=== PATIENT | male | born 1965 | race Caucasian/White ===

== ENCOUNTER 2024-05-18 06:20 | Inpatient (IN) | payer OTHER, SELFPAY ==
[2024-05-17 22:32] VITALS: BP 134/79
[2024-05-17 22:55] LABS: % Basophils 0.4 % (0-2); % Eosinophils 0.6 % (0-6); % Immature Granulocytes 0.6 % (0-0.5); % Lymphocytes 9.5 % (20.5-51.1); % Monocytes 8.1 % (1.7-9.3); % Neutrophils 80.8 % (42.2-75.2); Absolute Basophils 0.1 10^3/uL (0-0.2); Absolute Eosinophils 0.1 10^3/uL (0-0.7); Absolute Immature Granulocytes 0.1 10^3/uL (0-0.05); Absolute Lymphocytes 1.5 10^3/uL (1.2-3.4); Absolute Monocytes 1.3 10^3/uL (0.1-0.6); Absolute Neutrophils 12.7 10^3/uL (1.4-6.5); Hematocrit 41.6 % (39.0-52.0); Hemoglobin 14.2 g/dL (13.0-18.0); Mean Corp Hgb Conc. 34.1 g/dL (33.0-37.0); Mean Corpuscular Hgb 29.8 pg (27.0-31.0); Mean Corpuscular Volume 87.2 fL (80.0-94.0); Nucleated Red Blood Cells % 0 % (-); Platelet Count 263 10^3/uL (130-400); Red Blood Cell Count 4.77 10^6/uL (4.70-6.10); Red Cell Dist. Width 12.9 % (11.5-14.5); White Blood Cell Count 15.8 10^3/uL (4.8-10.8)
[2024-05-17 23:08] LABS: Lactic Acid 0.9 mmol/L (0.7-2.0)
[2024-05-17 23:10] LABS: ALT (SGPT) 35 U/L (0-50); AST (SGOT) 23 U/L (17-59); Albumin 4.5 g/dl (3.5-5.0); Alkaline Phosphatase 64 U/L (38-126); Blood Urea Nitrogen 22 mg/dl (9-20); Calcium 9.5 mg/dl (8.4-10.2); Carbon Dioxide 31 mmol/L (22-30); Chloride 95 mmol/L (98-107); Glucose 93 mg/dl (70-99); Potassium 4.5 mmol/L (3.5-5.1); Sodium 132 mmol/L (135-145); Total Bilirubin 2.2 mg/dl (0.2-1.3); Total Protein 6.6 g/dl (6.3-8.2); eGFR > 60.00
[2024-05-17 23:21] LABS: Lipase 2545 U/L (23-300)
[2024-05-18 02:37] VITALS: BP 136/84
[2024-05-18 02:43] VITALS: BMI 29.7
--- NOTE | 2024-05-18 03:27 | ED.GENMED ---
History of Present Illness
General
Chief Complaint: Abdominal Symptoms
Source: patient
Time Seen by Provider: 05/18/24 03:17
History of Present Illness
History of Present Illness:
58-year-old male presents to the emergency room complaining of nausea, vomiting and pain in the epigastric region. Patient has been experiencing pain in his abdomen for the past 24 to 36 hours. He has also been experiencing pain in his left leg
and low back which was initially treated as sciatica with prednisone and ibuprofen. However he developed a rash the other day which was diagnosed as herpes zoster. He began taking Valtrex yesterday. Patient endorses eating more than normal as
well as drinking more alcohol than normal over the holidays. He does not typically drink on a regular basis.
Past History
Past History
ED Past Medical History: Hypercholesterolemia
ED Past Surgical History: None
Phy Exam
Physical Exam
Physical Exam:
General: Awake, Alert, Oriented X3. No acute distress.
Vitals: unremarkable
Head: Atraumatic
Eyes: Pupils equal, EOMI
Throat: Airway intact, no exudates
Neck: Trachea midline
Lungs: Clear and equal b/l
Heart: Regular rate, no murmurs
Abd: Soft, positive epigastric tenderness to palpation, no pulsatile mass
Neuro: Nonfocal
Skin: Warm, dry, no rash. Vesicular rash noted left lateral thigh hand lower leg
Extremities: pulses equal b/l, no edema
Course
Orders/Labs/Results
Orders:
Orders
05/17/24 22:45
CBC/With Diff [Complete Blood Count/With Diff] Urgent
Comprehensive Metabolic Panel Urgent
Lactic Acid Urgent
Lipase Urgent
05/18/24 03:26
Ondansetron Injectable [Zofran] 4 mg IV NOW STA
05/18/24 03:27
CT Abd/Pel (IV only)-DH only Urgent
Comment:
Reason For Exam: epigastric pain, elevated lipase
Lactated Ringers [Lr] 1,000 ml IV BOLUS
05/18/24 05:53
Admit/Transfer Patient As Directed
Co-Sign Provider:
Level of Care: Inpatient admission
Assign to:: Medical/Surgical
Physician / Group: Nathanael
Diagnosis: Pancreatitis
Reason for Hospitalization: Pancreatitis
Expected length of stay greater than two midnights?: Yes
ELOS- Estimated Length of Stay in days: 3
I certify the patient meets the requirements for IP care: Yes
Code Status As Directed
Resuscitation Status: Full Code
PRN Pain Medication Management As Directed
May give lesser potent ordered pain med per pt: Yes
preference::
Protocol:: Medication orders for pain may be administered in a
manner that supports deferring to patient preference
when the pt is:
- Requesting an ordered lesser potent pain medication.
Least to most potent pain medications are defined
as: acetaminophen < NSAID < tramadol < opioids
(morphine, oxycodone, hydromorphone).
- Requesting a lesser dose of the same medication IF
ORDERED.
- Requesting a less intrusive route of administration
if both routes are prescribed by the provider (PO <
IV).
Abnormal Lab Results
05/17/24
22:45
WBC 15.8 H 10^3/uL
(4.8-10.8)
Abs Immat Gran (auto) 0.1 H 10^3/uL
(0-0.05)
Absolute Neuts (auto) 12.7 H 10^3/uL
(1.4-6.5)
Absolute Monos (auto) 1.3 H 10^3/uL
(0.1-0.6)
Immature Gran % 0.6 H %
(0-0.5)
Neutrophils % 80.8 H %
(42.2-75.2)
Lymphocytes % 9.5 L %
(20.5-51.1)
Sodium 132 L mmol/L
(135-145)
Chloride 95 L mmol/L
(98-107)
Carbon Dioxide 31 H mmol/L
(22-30)
BUN 22 H mg/dl
(9-20)
Total Bilirubin 2.2 H mg/dl
(0.2-1.3)
Lipase 2545 H* U/L
(23-300)
05/17/24 22:45
05/17/24 22:45
Vital Signs
Initial and Last Documented VS:
Initial Vital Signs
Temp Pulse Resp BP Pulse Ox
98.4 F 88 20 134/79 96
05/17/24 22:32 05/17/24 22:32 05/17/24 22:32 05/17/24 22:32 05/17/24 22:32
Last Documented Vital Signs
Temp Pulse Resp BP Pulse Ox
98.4 F 74 18 143/90 95
05/17/24 22:32 05/18/24 04:46 05/18/24 04:46 05/18/24 04:46 05/18/24 04:46
MDM/Problems Addressed
Differential Diagnosis Includes:
Cholecystitis, pancreatitis, gastritis
MDM/Problems Addressed:
Patient presents with epigastric pain. Labs show elevated white count of 15.8. Lipase is significantly elevated. Abdominal CT obtained which shows inflammation of the pancreas. Gallbladder itself appears normal. Patient will require
hospitalization. He denies significant alcohol ingestion. Source of pancreatitis unclear. Valtrex is the only new medication which she just started. Also wonder if herpes zoster in of itself can cause pancreatitis. All this will need to be
sorted out by the allied health professional.
*Radiology
Radiology exam reviewed: preliminary read by ED provider (Swelling and edema noted about the pancreas.) and radiology read reviewed (Vision report reviewed.)
*Pulse Oximetry
Patient hypoxic: no
*Critical Care Note
Total Time (30-74mins, 75-104mins- exclusive of procedures): Not Applicable
ED Attending Note
-
Portions of this chart may have been created with voice recognition software.� Occasional wrong word or��sound alike� substitutions may have occurred due to the inherent limitations of voice recognition software.
Discharge Plan
Departure
Patient Disposition: Admit
Date of Disposition: 05/18/24
Time of Disposition: 05:36
Admit to: Med/Surg
Presentation/result/management discussed w/ accepting MD/DO: Hospitalist
Condition: Fair
Discharge Problem:
Acute pancreatitis
Interventions
Interventions:
*General Assessment Last Done: 05/17/24 22:32
*ED COVID-19 Vaccine History Last Done: 05/18/24 02:39
SK-Qugztt-Egupggtcvq Assessment Last Done: 05/18/24 02:44
[2024-05-18] MEDS: ZOFRAN 4 MG IV (03:35)
[2024-05-18] MEDS: LR 1000 IV ×5 (03:35→23:04)
[2024-05-18 04:46] VITALS: BP 143/90
--- NOTE | 2024-05-18 05:56 | HPS.HSE ---
Family Physician
-
Family Physician: Albert Cruz DO
Chief Complaint
-
Abd Pain
History of Present Illness
Patient is a 58y M with PMH significant for dyslipidemia who presents to ED complaining of abdominal pain. Patient states that he started with epigastric abdominal pain yesterday evening (05/16). Pain started after Dario dinner. Patient
reports persistent / worsening pain since that time. Mild nausea without emesis. With pain increasing, he presented to the ED for further evaluation. He denies any prior history of similar symptoms.
Patient states that he developed burning pain in the LLE / L lower back about 2 weeks ago.
He was initially treated for sciatic pain with a Medrol dose pack - followed by prednisone 50mg daily x 5 days (last dose yesterday).
During this time he was also taking Advil [id number] for attempted pain control.
On 05/17, patient / family noted red lesions around the L knee concerning for shingles. They contacted their PCP and received Rx for valacyclovir which he started today.
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
Patient drinks perhaps two nights per week. A glass or two of wine per sitting.
He has had more alcohol than usual over the past few days due to the holidays.
Medical History
Past Medical History
Past Medical History: Reports Other
Additional Past Medical History:
Dyslipidemia
Shingles
Past Surgical History: Reports Other
Additional Past Surgical History:
Left ACL Repair
Appendectomy
Social History
Tobacco: Former Smoker (Quit smoking 25 years ago. )
Alcohol: Occasional
Drug: None
Family History
Family History: Not pertinent
Allergies / Home Medications
Allergies reflects when Allergies were last updated in [facility].
Home Medications with original date entered in [facility]
Allergy/Medication List:
Allergies
Allergy/AdvReac Type Severity Reaction Status Date / Time
No Known Allergies Allergy Verified 05/18/24 05:41
Home Medications
rosuvastatin 5 mg tablet 5 mg PO DAILY 05/18/24
valacyclovir 1 gram tablet 1,000 mg PO Q8H 05/18/24
Review of Systems
-
History Source: Patient
A 12 point ROS was completed and negative except as noted: Yes
Constitutional: Denies Fever or Chills
Respiratory: Denies Cough or Trouble Breathing
Cardiac: Denies Chest Pain or Palpitations
Abdomen/GI: Reports Abdominal Pain and Nausea; Denies Vomiting, Diarrhea or Constipated
: Denies Dysuria or Frequency
Neurological: Reports Other (Radicular pain.); Denies Dizzy or Headache
Psych: Denies Depression or Anxiety
Physical Exam
Vital Signs
Vital Signs
Temp Pulse Resp BP Pulse Ox
98.4 F 74 18 143/90 95
05/17/24 22:32 05/18/24 04:46 05/18/24 04:46 05/18/24 04:46 05/18/24 04:46
Physical Exam
General: Other (58y M in mild distress due to pain.)
HEENT: Moist mucous membranes and PERRLA
Respiratory: Clear; No Wheezes, Rales or Rhonchi
Cardiac: S1/S2 and Regular Rhythm; No Murmur
GI: Soft, Non Distended, Normal Bowel Sounds and Other (Pos epigastric and RUQ tenderness without rebound / guarding. Pos BS.)
Musculoskeletal: No Clubbing, No Cyanosis and No Edema
Skin: Other (Rash / erythematous lesions around the L knee.)
Neuro: AO x 3
Laboratory Results
-
05/17/24 22:45
05/17/24 22:45
Laboratory Results
Lactic Acid 0.9 mmol/L (0.7-2.0) 05/17/24 22:45
Total Bilirubin 2.2 mg/dl (0.2-1.3) H 05/17/24 22:45
AST 23 U/L (17-59) 05/17/24 22:45
ALT 35 U/L (0-50) 05/17/24 22:45
Alkaline Phosphatase 64 U/L (38-126) 05/17/24 22:45
Lipase 2545 U/L (23-300) H* 05/17/24 22:45
Impression/Plan
-
A/P: Patient is a 58y M with PMH significant for dyslipidemia who presents to ED complaining of abdominal pain x 24 hours.
Acute Pancreatitis
- Admit for further evaluation and treatment.
- NPO, IVF support, pain control, etc.
- GI evaluation for additional recommendations.
- No evidence of gallstones / GB disease by CT scan.
- ? advanced imaging for further evaluation.
- ? symptoms triggered by GERD / peptic ulcer disease given recent NSAID + steroid use.
- Follow clinically for improvement.
LLE Radiculopathy
- Possible herpes zoster infection with burning pain and rash.
- Continue valacyclovir to complete 7 day course.
- Add gabapentin for neuropathic pain.
- Avoid NSAIDs for now.
- Follow for improvement.
Dyslipidemia
- Stable. Hold statin acutely.
DVT Prophylaxis: SCDs
Code Status: Full
--- NOTE | 2024-05-18 07:40 | W.PN.HOSP.TC ---
Addendum entered and electronically signed by Supa Back MD 05/18/24 07:46:
4. Borderline low sodium - unclear cause, could be hypovolemic hyponatremia
follow daily after administration of IV fluids
5. BUN/Creat > 20 - from decreased po
Give IV fluids
Re check daily
6. Elevated WBC - likely from combo of zoster and pancreatitis
Follow daily.
Original Note:
Today's Communication/Plan
-
Keep NPO, ice chips ok.
Assessment / Plan
Assessment / Plan
58y M with PMH significant for dyslipidemia who presents to ED complaining of abdominal pain x 24 hours.
1. Acute Pancreatitis - No evidence of gallstones / GB disease by CT scan.
- Continue NPO, IVF support, pain control,
- GI evaluation for additional recommendations.
- ? advanced imaging for further evaluation.
- ? symptoms triggered by GERD / peptic ulcer disease given recent NSAID + steroid use.
- Follow clinically for improvement.
2. LLE Radiculopathy - Possible herpes zoster infection with burning pain and rash.
- Continue valacyclovir to complete 7 day course.
- Added gabapentin for neuropathic pain.
- Avoid NSAIDs for now.
- Follow for improvement.
3. Dyslipidemia
- Stable. continue to Hold statin acutely.
DVT Prophylaxis: SCDs
Code Status: Full
Anticipated Discharge: 24 - 48 hours
Subjective/Interval History
-
Date of Service: May 18, 2024
Feels better. Abdominal pain is less. No new issues.
Objective Data
-
Labs:
Laboratory Results
05/17/24
22:45
WBC 15.8 H
Hgb 14.2
Hct 41.6
Plt Count 263
Sodium 132 L
Potassium 4.5
Chloride 95 L
Carbon Dioxide 31 H
BUN 22 H
Creatinine 0.8
Glucose 93
Calcium 9.5
Total Bilirubin 2.2 H
AST 23
ALT 35
Alkaline Phosphatase 64
Vital Signs:
Vital Signs
Temp Pulse Resp BP Pulse Ox
98.4 F 74 18 143/90 95
05/17/24 22:32 05/18/24 04:46 05/18/24 04:46 05/18/24 04:46 05/18/24 04:46
Review of Systems
-
History Source: Patient
All other systems: Reviewed and negative
Physical Exam
-
General: Well Developed, Well Nourished, No Apparent Distress and Comfortable
HEENT: Normocephalic, Atraumatic, Nose Appears Normal and Ears Appear Normal
Respiratory: Clear to Auscultation
Cardiac: Regular Rhythm and S1/S2
GI: Soft, Nontender and Nondistended
Musculoskeletal: No Clubbing, No Cyanosis and No Edema
Skin: Warm and Dry; Negative Rash or Ulcers
Neuro: Awake, Alert, Oriented and AO x 3
Psych: Calm
Data Reviewed
-
Labs: Labs Reviewed by me
[2024-05-18 08:54] VITALS: BP 131/86
--- NOTE | 2024-05-18 10:17 | CON.GI ---
Addendum entered and electronically signed by Reese Hollingsworth MD 05/18/24 18:04:
I saw and examined the patient, and discussed management with the resident. I reviewed the resident's note and agree with the documented findings and plan of care.
Comment:
The patient is a 58-year-old male who p/w 1 day history of epigastric/back pain associate with nausea vomiting. Serologic workup and imaging studies showed findings consistent with acute pancreatitis. RUQ US was negative for gallstones. The
etiology is somewhat unclear, as this could be alcohol induced (drink few glasses of wine and 3-4 shots of liquor), or medication induced (prednisone). Patient is already feeling better. CT of abdomen did not show any fluid collections. Recommend
early enteral feeding and if patient tolerates diet can DC home. Follow-up with GI. Will s/o.
Original Note:
Consultation
-
Date/Time Consultation Requested: 05/18/2024 09: 40
Date/Time Consultation Performed: 05/18/2024
Requesting Provider: Gareth Huffman
Performing Provider: Reese Hollingsworth MD
Reason for Consultation: Pancreatitis
Medical History
Chief Complaint / HPI
Chief Complaint: Epigastric pain
History of Present Illness:
58-year-old male with PMH of hyperlipidemia who presented to the ED on 05/18 with nausea, vomiting, and epigastric pain that started 24 to 36 hours [employer]. Patient reported that about 2 weeks ago, he started having left lower extremity with low
back pain which was initially thought to be sciatica and was treated with prednisone. Patient also reported that he overlapped taking prednisone and ibuprofen 3 days before discontinuing the prednisone and continue taking ibuprofen for an extra 2
days. He reported taking 50 mg prednisone for 5 days and overlapped 500 mg of ibuprofen every 5 hours which he took last on morning. He also reported drinking some wine and liquor (Vaz) while taking ibuprofen. He however
developed a rash which was recently found to be herpes zoster and was started on Valtrex a day before presentation. He denies any history of trauma, autoimmune disease, or gallstones.
Past Medical History
Past Medical History: Hypercholesterolemia and Other (Shingles)
Past Surgical History: Appendectomy and Other (Left ACL repair)
Social History
Tobacco: Former Smoker (Quit 25 years ago)
Alcohol: Occasional
Drug: None
Family History
Family History: Reviewed & Not Pertinent
Allergies / Home Medications
Allergy/AdvReac Type Severity Reaction Status Date / Time
No Known Allergies Allergy Verified 05/18/24 05:41
�Medication �Instructions �Recorded
rosuvastatin 5 mg tablet 5 mg PO DAILY High Cholesterol 05/18/24
valacyclovir 1 gram tablet 1,000 mg PO Q8H Infection 05/18/24
Review of Systems
-
History Source: Family
All other systems: A 12 pt ROS was Negative except as stated above in HPI
Vital Signs
Temp Pulse Resp BP Pulse Ox
98.7 F 76 16 131/86 97
05/18/24 08:54 05/18/24 08:54 05/18/24 08:54 05/18/24 08:54 05/18/24 08:54
Physical Exam
Exam
General: No Apparent Distress and Comfortable
Respiratory: Clear
Cardiac: S1/S2
GI: Soft, Non Distended and Tender (Mild epigastric tenderness (improved from admission))
Skin: Warm
Neuro: AO x 3
Psych: Calm
Results
WBC 15.8 10^3/uL (4.8-10.8) H 05/17/24 22:45
Hgb 14.2 g/dL (13.0-18.0) 05/17/24 22:45
Hct 41.6 % (39.0-52.0) 05/17/24 22:45
MCV 87.2 fL (80.0-94.0) 05/17/24 22:45
Plt Count 263 10^3/uL (130-400) 05/17/24 22:45
Absolute Neuts (auto) 12.7 10^3/uL (1.4-6.5) H 05/17/24 22:45
Sodium 132 mmol/L (135-145) L 05/17/24 22:45
Potassium 4.5 mmol/L (3.5-5.1) 05/17/24 22:45
Chloride 95 mmol/L (98-107) L 05/17/24 22:45
Carbon Dioxide 31 mmol/L (22-30) H 05/17/24 22:45
BUN 22 mg/dl (9-20) H 05/17/24 22:45
Creatinine 0.8 mg/dL (0.7-1.3) 05/17/24 22:45
Calcium 9.5 mg/dl (8.4-10.2) 05/17/24 22:45
Total Bilirubin 2.2 mg/dl (0.2-1.3) H 05/17/24 22:45
AST 23 U/L (17-59) 05/17/24 22:45
ALT 35 U/L (0-50) 05/17/24 22:45
Alkaline Phosphatase 64 U/L (38-126) 05/17/24 22:45
Lipase 2545 U/L (23-300) H* 05/17/24 22:45
Assessment / Plan
-
Impression: 58-year-old male with PMH of dyslipidemia who presents with worsening epigastric pain, nausea, and vomiting.
Assessment/plan:
#Acute pancreatitis
-Multifactorial etiology�combination of steroid, NSAIDs.
-Lipase 2545 with normal triglycerides.
-CT abdomen pelvis negative for gallstones.
-RUQ ultrasound limited but shows no abnormalities.
-Keep n.p.o.
-Continue IV fluids.
-PPI
-Continue Valtrex.
-Pain control with Dilaudid as needed, avoid all NSAIDs.
-
-
Thank you for consultation and allowing me to participate in the patient's care. Please call the trailer sections assembler GI physician during the after hours with any questions or concerns.
[2024-05-18] MEDS: PROTONIX IV 40 MG IV (10:21)
[2024-05-18] MEDS: NEURONTIN 100 MG PO ×3 (10:21→21:15)
[2024-05-18] MEDS: VALTREX 1000 MG PO ×3 (10:21→21:09)
[2024-05-18] MEDS: NSS (PRESERVATIVE FREE) 10 ML IV (10:22)
[2024-05-18 11:41] LABS: HDL Cholesterol 69 mg/dl; LDL Cholesterol, Calculated 95 mg/dl; Total Cholesterol 186 mg/dl (50-199); Triglyceride 114 mg/dl (10-149); Very Low Density Lipoprotein 22 mg/dl (0-30)
[2024-05-18 17:15] VITALS: BP 152/82; BMI 28.5
--- NOTE | 2024-05-18 18:10 | PTCARENOTE ---
Pt admitted to rm 336-2 from ED. Ambulated to bed from stretcher. Pleasant/cooperative. Denies pain on admission. VSS. Shingles rash noted on L leg upon skin check - patient currently being treated for shingles. Request placed for room change to
observe isolation precautions. Pt oriented to room and POC. Call izaguirre in reach and explained, able to make needs known.
--- NOTE | 2024-05-18 20:00 | PTCARENOTE ---
Pt arrived to room 421-01. Pt ambulated from wheelchair to bed. Pt AAOx3, VSS. Pt with no c/o n/v. LR @200 mLs/hr. Pt oriented to room, call izaguirre placed within reach.
[2024-05-18 20:15] VITALS: BP 135/72
[2024-05-18] MEDS: NEURONTIN PO (21:09)
[2024-05-18 23:32] VITALS: BP 151/84
[2024-05-19] MEDS: LR 1000 IV ×2 (04:15→10:01)
[2024-05-19 07:00] VITALS: BP 122/74
[2024-05-19 08:11] LABS: Hematocrit 41.8 % (39.0-52.0); Hemoglobin 14.1 g/dL (13.0-18.0); Mean Corp Hgb Conc. 33.7 g/dL (33.0-37.0); Mean Corpuscular Hgb 29.7 pg (27.0-31.0); Mean Platelet Volume 10.2 fL (7.4-10.4); Platelet Count 264 10^3/uL (130-400); Red Blood Cell Count 4.75 10^6/uL (4.70-6.10); Red Cell Dist. Width 12.9 % (11.5-14.5); White Blood Cell Count 10.9 10^3/uL (4.8-10.8)
[2024-05-19 08:37] LABS: ALT (SGPT) 25 U/L (0-50); AST (SGOT) 19 U/L (17-59); Alkaline Phosphatase 59 U/L (38-126); Blood Urea Nitrogen 14 mg/dl (9-20); Calcium 9.2 mg/dl (8.4-10.2); Carbon Dioxide 28 mmol/L (22-30); Chloride 98 mmol/L (98-107); Direct Bilirubin 0.2 mg/dl (0.0-0.4); Estimated Creatinine Clearance 120 ml/min; Glucose 94 mg/dl (70-99); Lipase 346 U/L (23-300); Potassium 3.9 mmol/L (3.5-5.1); Sodium 135 mmol/L (135-145); Total Bilirubin 2.1 mg/dl (0.2-1.3); Total Protein 6.1 g/dl (6.3-8.2); eGFR > 60.00
[2024-05-19] MEDS: VALTREX 1000 MG PO ×2 (10:00→15:58)
[2024-05-19] MEDS: NEURONTIN 100 MG PO ×2 (10:00→15:58)
[2024-05-19] MEDS: PROTONIX IV 40 MG IV (10:00)
[2024-05-19] MEDS: NSS (PRESERVATIVE FREE) 10 ML IV (10:01)
--- NOTE | 2024-05-19 14:10 | W.PN.HOSP.TC ---
Today's Communication/Plan
-
Advance diet, discharge if tolerating full diet
Avoidance of alcohol, prednisone, NSAIDs at discharge
Follow-up with PCP if discharged today
Assessment / Plan
Assessment / Plan
#Acute Pancreatitis
-Likely secondary to alcohol versus prednisone; no evidence of gallstones on workup at admission
-Has since clinically improved and is tolerating liquid diet; labs stable this morning
-Will advance to full diet and observe after lunch today, possible DC after
-Encouraged avoidance of alcohol and likely prednisone as well after discharge
-Advised patient to avoid NSAIDs as well
-Hematocrit goal <44%, trend BUN while here
#LLE Radiculopathy
-Possible herpes zoster infection with burning pain and rash
-Continue valacyclovir to complete 10 day course.
-avoid NSAIDs for now.
-Follow for improvement.
#Dyslipidemia
-Resume statin at DC
DVT Prophylaxis: SCDs
Code Status: Full
Anticipated Discharge: Today
Subjective/Interval History
-
Date of Service: May 19, 2024
Seen and examined at the bedside. No acute events reported overnight. AFVSS this morning
He had liquids for breakfast and felt fine afterwards. Requesting a full meal for lunch, would like to go home today
Denies any and all acute complaints
Objective Data
-
Labs:
Laboratory Results
05/19/24
07:41
WBC 10.9 H
Hgb 14.1
Hct 41.8
Plt Count 264
Sodium 135
Potassium 3.9
Chloride 98
Carbon Dioxide 28
BUN 14
Creatinine 0.7
Glucose 94
Calcium 9.2
Total Bilirubin 2.1 H
AST 19
ALT 25
Alkaline Phosphatase 59
Vital Signs:
Vital Signs
Temp Pulse Resp BP Pulse Ox
98.0 F 74 18 122/74 97
05/19/24 07:00 05/19/24 07:00 05/19/24 07:00 05/19/24 07:00 05/19/24 07:00
I&O
05/18/24 05/19/24 05/20/24
06:59 06:59 06:59
Intake Total 2420 / 2420
Balance 2420 / 2420
Review of Systems
-
History Source: Patient
All other systems: Reviewed and negative
Physical Exam
-
General: Well Developed, Well Nourished, No Apparent Distress and Comfortable
HEENT: Normocephalic, Atraumatic, Moist Mucous Membranes and Anicteric
Respiratory: Clear to Auscultation and Non Labored Respirations
Cardiac: Regular Rhythm and S1/S2; Negative Murmur, Rub or Gallop
GI: Soft, Nontender, Nondistended and Normal Bowel Sounds
Musculoskeletal: No Clubbing, No Cyanosis, No Edema and Normal Gait & Station
Skin: Warm, Dry and Normal Turgor; Negative Rash or Jaundice
Neuro: AO x 3 and Nonfocal/Grossly Intact
Psych: Calm
Data Reviewed
-
Labs: Labs Reviewed by me and Discussed with Patient
[2024-05-19 15:00] VITALS: BP 134/84
[2024-05-19] MEDS: LR IV (15:58)
--- NOTE | 2024-05-19 16:57 | CM ---
Patient seen at bedside.
IA completed
Lives in a 2 story home, 2 steps to enter, flight to second floor
PLOF: Independent
Denies DME
Denies insecurities
PCP: Albert Cruz
Pharmacy:[facility]
PLAN: Home, no needs
to transport
--- NOTE | 2024-05-20 15:34 | W.DCSUMMARY ---
Discharge Summary
Discharge Data
Date of Admission: 05/18/24
Date of Discharge: 05/19/24
-
Pending Results: No
Hospital Course
58-year-old male with hyperlipidemia, alcohol use that presented to the hospital with abdomen pain and nausea that started after . Was recently prescribed prednisone for radiculitis, was using NSAIDs as well at that time. Also mentions
that he had alcohol consumption on and . Upon arrival had elevated lipase and CT imaging consistent with acute pancreatitis. Idiopathic though suspected to be due to alcohol/prednisone, and possibly even NSAIDs. Was
given IV fluids and antiemetics supportively. Clinically improved and tolerated full meal by lunch of hospital day 2. Patient requested discharge home once tolerating full diet. Encouraged him to avoid NSAIDs, prednisone, alcohol. Encouraged him
to follow-up with his PCP after discharge
Of note, suspect that his lower extremity radiculitis may have been more related to shingles. Was started on valacyclovir with improvement to both rash and pain. Encouraged him to complete 7-day course of valacyclovir for shingles. He should
follow-up PCP as well for this issue
Discharge Plan
-
Patient Disposition: Home (Routine Discharge)
Discharge Diagnosis/Procedures: Acute pancreatitis
Condition: Good
Diet: No restrictions
Additional Diets: Avoid alcohol, even small amounts can cause pancreatitis if hypersensitive to alcohol
Activity: As tolerated
Driving Restrictions: As prior to admission
Bathing Restrictions: None
Activity Restrictions/Additional Instructions:
After discharge from the hospital you should schedule a follow-up with your family doctor. Should be seen in the office within 1 to 2 weeks of discharge
Instructions: Acute pancreatitis
Referrals:
Albert Cruz DO [Family Provider] -
Additional Discharge Medication Instructions: Continue valacyclovir 1 g every 8 hours to complete 10 days total
Avoid alcohol, NSAIDs (ibuprofen/Motrin, naproxen, meloxicam as well as others)
Discussed with physician before starting prednisone again in the future
Prescriptions:
Continued
valacyclovir 1 gram Tablet
1,000 mg PO Q8H
rosuvastatin 5 mg Tablet
5 mg PO DAILY
Discharge Orders:
Discharge Patient (As Directed); Ordered 05/19/24
Ordered By: Caleb Reynaga
Discharge Date and Time
Discharge Date/Time: 05/19/24 17:41
Print Language: [place]
== END 2024-05-19 17:41 | disposition home or self-care (01) | DRG 439 ==
LOC: 4 WEST ACU 06:20
PROVIDERS: Student in an Organized Health Care Education/Training Program; ADMITTING PHYSICIAN Hospitalist; ATTENDING PHYSICIAN Internal Medicine; EMERGENCY PHYSICIAN Emergency Medicine; FAMILY PHYSICIAN Family Medicine; OTHER PHYSICIAN Internal Medicine Gastroenterology
DX: K85.90 Acute pancreatitis without necrosis or infection, unspecified (principal); E87.1 Hypo-osmolality and hyponatremia; E78.00 Pure hypercholesterolemia, unspecified; K21.9 Gastro-esophageal reflux disease without esophagitis; K27.9 Peptic ulcer, site unspecified, unspecified as acute or chronic, without hemorrhage or perforation; B02.9 Zoster without complications; M54.10 Radiculopathy, site unspecified; Z87.891 Personal history of nicotine dependence; Z79.52 Long term (current) use of systemic steroids
CPT/HCPCS: 74177; 76705; 80053; 80061; 82248; 83605; 83690; 85025; 85027; 96361; 96374; 99285; Q9967